=== PATIENT | female | born 1955 | race African-American/Black ===

== ENCOUNTER 2019-04-02 06:34 | Inpatient (IN) ==
[~2019-04-02 06:34] MED LIST: Bacitracin 50,000 UNIT, Polymyxin B Sulfate 500,000 UNIT, Sodium Chloride IRRigation 1,... IR ONE
[2019-04-02] MEDS ORDERED: *HR* Propofol 200 MG/20 ML VIAL IVP ONE (06:39)
[2019-04-02] MEDS ORDERED: Lidocaine -MPF 2% 2 ML VIAL ONE (06:39)
[2019-04-02] MEDS ORDERED: Dexamethasone 4 MG/ML VIAL ONE (06:39)
[2019-04-02] MEDS ORDERED: Lidocaine HCL 4 ML Topical Solution (Laryng-O-Jet Kit Sterile Pak) TP ONE (06:39)
[2019-04-02] MEDS ORDERED: Ondansetron 4 MG/2 ML VIAL ONE (06:39)
[2019-04-02] MEDS ORDERED: *HR* Succinylcholine 200 MG/10 ML VIAL IVP ONE (06:39)
[2019-04-02] MEDS ORDERED: Albuterol 2.5 MG/3 ML NEBULIZER IH PRN (06:53)
[2019-04-02] MEDS ORDERED: Ringers Solution, Lactated 1,000 ML IVC SCH (07:00)
[2019-04-02] MEDS ORDERED: Dexmedetomidine HCl 400 MCG/100 ML MLS IVC ONE (07:02)
[2019-04-02] MEDS ORDERED: *HR* Midazolam HCl 2 MG/2 ML VIAL IVP PRN (07:11)
[2019-04-02] MEDS ORDERED: Ondansetron 4 MG/2 ML VIAL IVP ONE (07:11)
[2019-04-02] MEDS ORDERED: Morphine Sulfate 2 MG/ML SYRINGE IVP PRN (07:11)
[2019-04-02] MEDS ORDERED: Gabapentin 300 MG CAPSULE PO ONE (07:11)
[2019-04-02] MEDS ORDERED: Acetaminophen IV 1,000 MG/100 ML INFUS..BTL IVPB ONE (07:11)
[2019-04-02] MEDS ORDERED: *HR* Midazolam HCl 2 MG/2 ML VIAL ONE (07:14)
[2019-04-02] MEDS ORDERED: *HR* FentaNYL (PF) 100 MCG/2 ML VIAL ONE (07:14)
[2019-04-02] MEDS ORDERED: *HR* Vasopressin 20 UNIT/ML VIAL ONE (07:57)
[2019-04-02] MEDS ORDERED: *HR* Magnesium Sulfate 1 GM/2 ML VIAL ONE (09:10)
[2019-04-02] MEDS ORDERED: *HR* Phenylephrine 10 MG/ML VIAL ONE (09:17)
[2019-04-02] MEDS ORDERED: *HR* PHENYLEPHRINE 1,000 MCG/10 ML SYRINGE IVP ONE ×2 (09:50→15:20)
[2019-04-02] MEDS ORDERED: EPINEPHrine 1 MG/ML VIAL ONE (12:05)
[2019-04-02] MEDS ORDERED: Naloxone 0.4 MG/ML INJ IM PRN (13:51)
[2019-04-02] MEDS ORDERED: Naloxone 0.4 MG/ML INJ ONE (13:53)
[2019-04-02] MEDS ORDERED: hydrOXYzine pamoate 25 MG CAPSULE PO PRN (14:54)
[2019-04-02] MEDS ORDERED: Ibuprofen 800 MG TABLET PO PRN (14:54)
[2019-04-02] MEDS ORDERED: Naloxone 0.4 MG/ML INJ IVP PRN (14:54)
[2019-04-02] MEDS ORDERED: Ondansetron 4 MG/2 ML VIAL IVP PRN (14:54)
[2019-04-02] MEDS: Ringers Solution, Lactated 1,000 ML IVC SCH (21:08)
[2019-04-02] MEDS: Acetaminophen 325 MG TABLET PO PRN (21:08)
[2019-04-03] MEDS: *HR* OxyCODONE Immed Rel 5 MG TABLET PO PRN ×2 (00:46→12:51)
[2019-04-03] MEDS ORDERED: 0.9 % Sodium Chloride 500 ML IVC ONE (06:00)
[2019-04-03] MEDS: *HR* Metformin 500 MG TABLET PO SCH (08:27)
[2019-04-03] MEDS: *HR* HYDROcodone/Acet 5/325 mg TABLET PO PRN ×2 (08:29→18:35)
[2019-04-03] MEDS: Valsartan 160 MG TABLET PO SCH (08:55)
[2019-04-03] MEDS ORDERED: hydroCHLOROthiazide 25 MG TABLET PO SCH (09:00)
[2019-04-03] MEDS ORDERED: Dextrose Gel 15 GM/37.5 ML TUBE PO PRN ×2 (12:26)
[2019-04-03] MEDS ORDERED: *HR* Dextrose 50 % in Water (Syg) 50 ML SYRINGE IVP PRN (12:26)
[2019-04-03] MEDS ORDERED: D5% in Water 1,000 ML IVC PRN (12:26)
[2019-04-03] MEDS: Insulin LISPRO 300 UNITS/3 ML VIAL SQ SCH (17:43)
[2019-04-03] MEDS: Ringers Solution, Lactated 1,000 ML IVC SCH ×2 (20:44→21:02)
[2019-04-04] MEDS ORDERED: 0.9 % Sodium Chloride 500 ML IVC ONE (03:48)
[2019-04-04] MEDS: *HR* HYDROcodone/Acet 5/325 mg TABLET PO PRN (04:07)
[2019-04-04 05:27] LABS: Hematocrit 28.1 % (35.3-44.9); Hemoglobin 9.1 g/dL (11.5-15.4)
[2019-04-04 05:53] LABS: BUN/Creatinine Ratio 14 (6-26); Blood Urea Nitrogen 10 mg/dL (8-23); Calcium 8.4 mg/dL (8.6-10.3); Carbon Dioxide 27 mEq/L (23-29); Chloride 105 mEq/L (98-107); Glucose 138 mg/dL (70-105); Osmolality,Calculated 289 (280-300); Potassium 3.8 mEq/L (3.5-5.1); Sodium 139 mEq/L (136-145); eGFR For African Americans > 60 (> 60); eGFR For Non-African Americans > 60 (> 60)
[2019-04-04] MEDS: Valsartan 160 MG TABLET PO SCH (08:11)
[2019-04-04] MEDS: *HR* Metformin 500 MG TABLET PO SCH (08:12)
[2019-04-04] MEDS: Insulin LISPRO 300 UNITS/3 ML VIAL SQ SCH ×3 (08:13→17:55)
[2019-04-04] MEDS ORDERED: Acetaminophen IV 1,000 MG/100 ML INFUS..BTL IVPB ONE (08:26)
[2019-04-04 16:12] LABS: Basophils # 0.1 K/mcL (0.0-0.2); Basophils % 0.5 %; Eosinophils # 0.2 K/mcL (0.0-0.6); Eosinophils % 1.7 %; Hematocrit 29.5 % (35.3-44.9); Hemoglobin 9.9 g/dL (11.5-15.4); Immature Granulocytes % 0.6 % (0-4); Lymphocytes # 4.5 K/mcL (0.6-4.6); Lymphocytes % 36.4 %; Mean Corpuscular HGB Conc 33.6 g/dL (31.6-35.5); Mean Corpuscular Hemoglobin 29.7 pg (28.0-33.3); Mean Corpuscular Volume 88.6 fL (83.0-100.0); Mean Platelet Volume 9.9 fL (9.4-12.4); Monocytes # 1.7 K/mcL (0.0-1.3); Monocytes % 13.7 %; Neutrophils # 5.8 K/mcL (1.6-8.9); Platelet Count 124 K/mcL (140-400); Red Blood Count 3.33 M/mcL (3.82-4.97); Red Cell Distribution Width 16.6 % (11.5-14.5); Segmented Neutrophils % 47.1 %; White Blood Count 12.2 K/mcL (4.3-11.1)
[2019-04-04] MEDS ORDERED: Piperacillin/Tazobactam 3.375 GM VIAL ONE (16:30)
[2019-04-04 16:39] LABS: Albumin 2.3 g/dL (3.5-5.7); Albumin/Globulin Ratio 0.9 (1.1-2.2); Bilirubin,Direct 0.5 mg/dL (0.0-0.2); Bilirubin,Indirect 0.5 mg/dL (0.0-1.0); Globulin 2.7 g/dL (2.4-3.5)
[2019-04-04] MEDS: Piperacillin/Tazobactam 3.375 GM in 0.9 % Sodium Chloride Mini Bag 100 ML IVPB SCH (16:39)
[2019-04-04] MEDS: Ascorbic Acid 500 MG TABLET PO SCH (16:40)
[2019-04-04] MEDS: 0.9 % Sodium Chloride 1,000 ML IVC SCH (16:40)
[2019-04-04] MEDS: *HR* OxyCODONE Immed Rel 5 MG TABLET PO PRN (20:26)
[2019-04-05 00:37] LABS: Bilirubin,Urine Negative (Negative); Blood,Urine Negative (Negative); Clarity,Urine Clear (Clear); Color,Urine Yellow (Yellow); Glucose,Urine (UA) Normal (Normal); Ketones,Urine Negative (Negative); Leukocyte Esterase,Urine Negative (Negative); Nitrite,Urine Negative (Negative); Protein,Urine Negative (Neg-Trace); Specific Gravity,Urine 1.017 (1.010-1.025); Urobilinogen,Urine Normal (Normal)
[2019-04-05] MEDS: Piperacillin/Tazobactam 3.375 GM in 0.9 % Sodium Chloride Mini Bag 100 ML IVPB SCH ×3 (00:40→16:43)
[2019-04-05 01:51] LABS: Basophils # 0.1 K/mcL (0.0-0.2); Basophils % 0.6 %; Eosinophils # 0.2 K/mcL (0.0-0.6); Eosinophils % 1.4 %; Hematocrit 27.3 % (35.3-44.9); Hemoglobin 8.8 g/dL (11.5-15.4); Immature Granulocytes % 0.5 % (0-4); Lymphocytes # 5.2 K/mcL (0.6-4.6); Lymphocytes % 38.5 %; Mean Corpuscular HGB Conc 32.2 g/dL (31.6-35.5); Mean Corpuscular Hemoglobin 29.2 pg (28.0-33.3); Mean Corpuscular Volume 90.7 fL (83.0-100.0); Mean Platelet Volume 10.6 fL (9.4-12.4); Monocytes # 1.7 K/mcL (0.0-1.3); Monocytes % 12.6 %; Neutrophils # 6.3 K/mcL (1.6-8.9); Platelet Count 123 K/mcL (140-400); Red Blood Count 3.01 M/mcL (3.82-4.97); Red Cell Distribution Width 16.5 % (11.5-14.5); Segmented Neutrophils % 46.4 %; White Blood Count 13.6 K/mcL (4.3-11.1)
[2019-04-05 02:25] LABS: BUN/Creatinine Ratio 13 (6-26); Blood Urea Nitrogen 8 mg/dL (8-23); Calcium 7.9 mg/dL (8.6-10.3); Carbon Dioxide 28 mEq/L (23-29); Chloride 107 mEq/L (98-107); Glucose 172 mg/dL (70-105); Osmolality,Calculated 284 (280-300); Potassium 3.5 mEq/L (3.5-5.1); Sodium 136 mEq/L (136-145); eGFR For African Americans > 60 (> 60); eGFR For Non-African Americans > 60 (> 60)
[2019-04-05] MEDS: *HR* OxyCODONE Immed Rel 5 MG TABLET PO PRN ×3 (04:26→20:08)
[2019-04-05] MEDS: 0.9 % Sodium Chloride 1,000 ML IVC SCH (06:15)
[2019-04-05] MEDS: Ascorbic Acid 500 MG TABLET PO SCH ×2 (09:23→16:45)
[2019-04-05] MEDS: *HR* Metformin 500 MG TABLET PO SCH (09:23)
[2019-04-05] MEDS: Insulin LISPRO 300 UNITS/3 ML VIAL SQ SCH ×3 (09:25→16:45)
[2019-04-06 00:34] VITALS: BP 99/61
[2019-04-06] MEDS: Piperacillin/Tazobactam 3.375 GM in 0.9 % Sodium Chloride Mini Bag 100 ML IVPB SCH ×2 (00:47→10:36)
[2019-04-06] MEDS: Acetaminophen 325 MG TABLET PO PRN (00:54)
[2019-04-06] MEDS: *HR* OxyCODONE Immed Rel 5 MG TABLET PO PRN (05:59)
[2019-04-06] MEDS ORDERED: *HR* Enoxaparin 40 MG/0.4 ML SYRINGE SQ SCH (06:00)
[2019-04-06 07:03] LABS: Hematocrit 27.2 % (35.3-44.9); Mean Corpuscular HGB Conc 33.1 g/dL (31.6-35.5); Mean Corpuscular Hemoglobin 29.2 pg (28.0-33.3); Mean Corpuscular Volume 88.3 fL (83.0-100.0); Platelet Count 139 K/mcL (140-400); Red Blood Count 3.08 M/mcL (3.82-4.97); Red Cell Distribution Width 16.2 % (11.5-14.5); White Blood Count 11.1 K/mcL (4.3-11.1)
[2019-04-06] MEDS: Ascorbic Acid 500 MG TABLET PO SCH (08:58)
[2019-04-06] MEDS: *HR* Metformin 500 MG TABLET PO SCH (08:58)
[2019-04-06] MEDS: Insulin LISPRO 300 UNITS/3 ML VIAL SQ SCH ×2 (08:59→12:01)
[2019-04-06] MEDS ORDERED: *HR* Heparin 5,000 UNIT/ML VIAL SQ SCH (09:00)
[2019-04-06] MEDS ORDERED: FLU Vac QV 19-20 (6Month+)/PF 0.5 ML SYRINGE IM ONE (13:57)
== END 2019-04-06 15:30 | disposition home health service (06) | DRG 304 ==
LOC: SAMDAY 06:34 → 3NENU 14:46
PROVIDERS: ADMIT Orthopaedic Surgery Orthopaedic Surgery of the Spine; ATTEND Orthopaedic Surgery Orthopaedic Surgery of the Spine